=== PATIENT | male | born 1970 | race Caucasian/White ===

== ENCOUNTER 2017-01-05 03:29 | Emergency (ER) | payer BC, OTHER, SELFPAY ==
[2017-01-05] MEDS ORDERED: PRED20TA PO (04:20)
[2017-01-05] MEDS ORDERED: methylPREDNISolone INJ 125 MG/2 ML VIAL (J2930) IM ONE (04:30)
--- NOTE | 2017-01-05 07:32 | REP ---
Clinical: Cough . Comparison: None . Technique: PA and lateral. Findings: The mediastinum and cardiac silhouette are normal. The lung strange are clear and without acute consolidation, effusion, or pneumothorax. However, subtle left basilar atelectasis cannot be excluded and should be correlated with auscultation. The skeletal structures are intact and normal. Impression: Questionable left lower lobe atelectasis should be correlated with auscultation. Otherwise no acute cardiopulmonary process appreciated. Signed by Wood Leal MD 01/05/2017 07:24 A
== END 2017-01-05 04:38 | disposition home or self-care (01) ==
LOC: M ED 03:29
DX: J45.909 Unspecified asthma, uncomplicated (principal); Z91.013 Allergy to seafood
CPT/HCPCS: 71020; 96372; 99282; J2930